=== PATIENT | female | born 1945 | race Two or more races ===

== ENCOUNTER 2020-06-29 07:22 | Outpatient (CLI) | payer OTHER | END 2020-06-29 07:32 | disposition home or self-care (01) | LOC: NUCLEAR 07:22 | PROVIDERS: ATTEND Internal Medicine Cardiovascular Disease | DX: R07.89 Other chest pain (principal) | CPT/HCPCS: 78452; 93017; A9500 ==

== ENCOUNTER 2020-10-21 09:15 | Outpatient (CLI) | payer OTHER | END 2020-10-21 09:28 | disposition home or self-care (01) | LOC: TOM 09:15 | PROVIDERS: ATTEND Urology | DX: K63.2 Fistula of intestine (principal); N30.00 Acute cystitis without hematuria ==